=== PATIENT | female | born 1975 | race Two or more races ===

== ENCOUNTER 2016-11-16 13:51 | Emergency (ER) | payer MEDICAID ==
[~2016-11-16] VITALS: Ht 160 cm; Wt 66.0 kg
[2016-11-16] MEDS ORDERED: SODIUM CHLORIDE 0.9% 1,000 ML IV ONE (14:16)
[2016-11-16] MEDS ORDERED: FENTANYL CITRATE/PF 50MCG/ML 2ML VIAL IV ONE (14:30)
[2016-11-16] MEDS ORDERED: IOHEXOL-350 100 ML BOTTLE ONE (14:36)
[2016-11-16] MEDS ORDERED: SODIUM CHLORIDE 0.9% 10ML VIAL ONE (14:36)
[2016-11-16 15:07] LABS: BASOPHILS % 0.7 % (0.0-2.0); HEMATOCRIT. 34.2 % (36.0-48.0); HEMOGLOBIN. 11.4 g/dL (12.0-16.0); LYMPHOCYTES % 24.5 % (20.0-50.0); MEAN CORPUSCULAR HEMOGLOBIN 27.7 pg (28.0-32.0); MEAN CORPUSCULAR VOLUME 82.9 fL (81.0-99.0); MONOCYTES % 12.1 % (2.0-8.0); NEUTROPHILS % 59.7 % (40.0-76.0); PLATELET 284 x1000/uL (130-400); RED BLOOD CELL COUNT 4.13 mill/uL (4.2-5.4); RED CELL DISTRIBUTION WIDTH 16.1 % (11.6-14.6)
[2016-11-16 15:14] LABS: PROTHROMBIN TIME 10.8 sec (9.4-11.6)
[2016-11-16 15:22] LABS: CARBON DIOXIDE 26 mEq/L (21-32); CHLORIDE 107 mEq/L (98-107); TROPONIN I < 0.02 ng/mL (0.00-0.04)
[2016-11-16 16:20] LABS: CLARITY URINE CLEAR (CLEAR); COLOR URINE YELLOW (YELLOW); GLUCOSE URINE NEGATIVE (NEGATIVE); KETONES URINE NEGATIVE (NEGATIVE); LEUKOCYTE ESTERASE URINE NEGATIVE (NEGATIVE); NITRITE URINE NEGATIVE (NEGATIVE); OCCULT BLOOD URINE NEGATIVE (NEGATIVE); PH URINE 6.5 (4.5-8.0); PROTEIN URINE NEGATIVE (NEGATIVE); SPECIFIC GRAVITY URINE 1.009 (1.005-1.030); UROBILINOGEN URINE 0.2 E.U./dL (0.2-1.0)
[2016-11-16] MEDS ORDERED: OXYCODONE HCL/ACETAMINOPHEN 5/325MG TABLET PO ONE (17:30)
[2016-11-16 19:10] VITALS: BP 160/112
== END 2016-11-16 19:14 | disposition home or self-care (01) ==
LOC: ER 14:03
DX: S16.1XXA Strain of muscle, fascia and tendon at neck level, initial encounter (principal); R10.9 Unspecified abdominal pain; R07.9 Chest pain, unspecified; V89.2XXA Person injured in unspecified motor-vehicle accident, traffic, initial encounter; Y93.89 Activity, other specified; Y92.89 Other specified places as the place of occurrence of the external cause; Y99.8 Other external cause status
CPT/HCPCS: 36415; 70450; 71260; 72125; 74177; 80053; 81003; 83690; 84484; 85025; 85610; 87086; 93005; 96361; 96374; 99285; A4216; J3010; Q9967; Z7610; J7030